=== PATIENT | female | born 1995 | race Caucasian/White ===

== ENCOUNTER 2019-09-09 17:14 | Inpatient (IN) | payer MEDICAID, OTHER ==
[2019-09-09] MEDS ORDERED: Lactated Ringers 1000 ML Bag* 1,000 ML IV ONE (17:55)
[2019-09-09] MEDS ORDERED: Buffered Lidocaine 1% SYRIN* 1 ML/SYRINGE INTRADERM ONE (17:55)
[2019-09-09] MEDS ORDERED: Famotidine IV* 10 MG/ML 2 ML (20 mg) IV SLOW PU ONE (18:00)
[2019-09-09] MEDS ORDERED: Lactated Ringers 1000 ML Bag* 1,000 ML IV SCH (18:00)
[2019-09-09] MEDS ORDERED: Calcium Carbonate CHEW TAB* 500 MG (TUMS) PO PRN (18:00)
--- NOTE | 2019-09-09 18:05 | HP ---
General Information - Reason for Visit Contractions increasing in intensity since last night - General Information Maternal Age: 24 Grav: 2 Para: 1 SAB: 0 IEA: 0 Estimated Due Date: 09/05/19 Maternal Blood Type and Rh: A Positive - Results this Serology/RPR Result: Non-Reactive Rubella Result: Immune HBsAg Result: Negative HIV Result: Negative GBS Culture Result: Negative Past Medical History Delivery History: Hx Uncomplicated Vaginal Delivery Pertinent Past Medical History: See Records Review of Systems Constitutional: Uncomfortable CV Complaint: No Respiratory: Shortness of Breath: No Gastrointestinal: No Nausea/Vomiting, Normal Bowel Movement Genitourinary: No Dysuria, No Bleeding, No Leaking Fluid Musculoskeletal: Contractions Neurological: No Headache, No Visual Changes Movement: Normal Exam Allergies/Adverse Reactions: Allergies amoxicillin Allergy (Verified 09/09/19 18:04) Unknown Reaction Details coconut Allergy (Verified 09/09/19 18:04) Unknown Reaction Details Penicillins Allergy (Verified 09/09/19 18:35) Anaphylatic Shock - Measurements Height: 5 ft 6 in Weight: 208 lb Weight in lbs: [phone] Body Mass Index (BMI): 33.5 Pre- Weight: 170 lb Weight Gained This : 38 lbs and 0 ozs - Exam Breast: Breast Exam Deferred CVA: No CVA Tenderness Extremities: No Edema Heart: Normal Rhythm/Heart Sounds HEENT: No Significant Findings Lungs: Clear Bilaterally Rectal: Rectal Exam Deferred Reflexes: DTR 2+ - Abdominal Exam Abdomen Exam: Non-Tender, Fundal Height Consistent with Dates - Ultrasound/Biophysical Profile Ultrasound Status: Not Done Targeted Exam Findings Estimated Weight: 7lb Cervical Exam: 6cm Effacement: 90% Station: 0 Presenting Part: Vertex Membrane Status: Intact Bleeding/Discharge: None EFM Findings - External Monitor Findings Baseline Heart Rate: 140 External Monitor Findings: Accelerations Present, No Pattern of Variable or Late Decelerations, Variability Moderate Contractions: Regular, Strong, 45-90 Seconds Contraction Frequency: q 3 min Assessment/Plan - Assessment IUP @ 40+5 weeks gestation in labor. Intact membranes. No evidence acidemia. - Plan Plan: Admit - Anticipate Vaginal Delivery Plan Comment: Admit, IV initiated in case patient desires epidural. - Date/Time of Admission Date of Admission: 09/09/19 Time of Admission: 18:13
[2019-09-09 18:35] LABS: ABS Lymphocytes 1.9 10^3/ul (1.0-4.8); ABS Monocytes 0.7 10^3/ul (0-0.8); Eosinophil % 0.2 %; Hematocrit 36 % (35-47); Hemoglobin 11.8 g/dL (12.0-16.0); Mean Corpuscular HGB Conc 33 g/dL (31-36); Mean Corpuscular Hemoglobin 28 pg (27-31); Mean Corpuscular Volume 85 fL (80-97); Mean Platelet Volume 7.9 fL (7.4-10.4); Platelet Count 205 10^3/uL (150-450); Red Blood Count 4.17 10^6 /uL (3.70-4.87); Red Cell Distribution Width 13 % (10-15); White Blood Count 12.7 10^3/uL (3.5-10.8)
[2019-09-09 19:12] LABS: Urine Benzodiazepine Screen None Detected (None Detect); Urine Opiates Screen None Detected (None Detect)
--- NOTE | 2019-09-09 20:08 | PN ---
Progress Note - Progress Note Date of Service: 09/09/19 Note: Uncomfortable. Still wants to consider epidural but prefers to wait for ' s return before that or before considering amniotomy.
[2019-09-09] MEDS ORDERED: Acetaminophen TAB* 325 MG PO PRN (21:19)
[2019-09-09] MEDS ORDERED: Glycerin ADULT SUPP PR PRN (21:19)
--- NOTE | 2019-09-09 21:40 | PROCNOTE ---
[facility] OB: Delivery Note - Delivery A Date of : 09/09/19 Time of : 20:48 [place] Sex: Female - "Donald Quiroga" Weight at : 7 lb 10 oz Score 1 Minute: 9 Score 5 Minutes: 9 Gestational Age in Weeks and Days at Delivery: 40 Weeks and 4 Days Delivery Method: Spontaneous Vaginal Labor: Spontaneous Did Patient attempt ?: N/A, No Previous Amniotic Fluid: Clear Estimated Blood Loss: 300 Anesthesia/Analgesia: None Delivered By: Salazar Best - Nursery Level of Nursery: Regular/Bedside - Perineum Perineal Injury: Abrasion Only - Not Repaired Perineal Repair: None - Events Delivery Events of Note: None Apply - Additional Delivery Notes Additional Delivery Notes: Admitted in active labor with quick progression to urge to push. Length of active labor 5'54", pushed 25 min. Baby born OA to SELINA, shoulders following with maternal efforts. To maternal abdomen with spontaneous cry, HR >110. Cord doubly clamped and cut by FOB once pulsations ceased. Placenta delivered with gentle cord traction @ 2053. Fundus firm to massage. Baby at breast to initiate .
[2019-09-09] MEDS: Ibuprofen TAB* 600 MG PO PRN (21:46)
[2019-09-09] MEDS: Dibucaine 1% 28.35 GM TUBE PR PRN (21:47)
[2019-09-09] MEDS: Witch Hazel PAD* JAR TOPICAL PRN (21:47)
[2019-09-10] MEDS: Dibucaine 1% 28.35 GM TUBE PR PRN (05:52)
[2019-09-10] MEDS: Ibuprofen TAB* 600 MG PO PRN ×3 (05:53→17:52)
[2019-09-10 06:55] LABS: ABS Monocytes 0.9 10^3/ul (0-0.8); ABS Neutrophils 10.1 10^3/ul (1.5-7.7); Eosinophil % 0.1 %; Hematocrit 33 % (35-47); Hemoglobin 11.5 g/dL (12.0-16.0); Lymphocyte % 15.2 %; Mean Corpuscular HGB Conc 34 g/dL (31-36); Mean Corpuscular Hemoglobin 29 pg (27-31); Mean Corpuscular Volume 84 fL (80-97); Mean Platelet Volume 7.7 fL (7.4-10.4); Platelet Count 197 10^3/uL (150-450); Red Blood Count 3.96 10^6 /uL (3.70-4.87); Red Cell Distribution Width 14 % (10-15); White Blood Count 13.1 10^3/uL (3.5-10.8)
[2019-09-10] MEDS ORDERED: Ferrous Gluconate TAB* 324 MG TAB PO SCH (09:00)
[2019-09-10] MEDS: Docusate CAP* 100 MG PO SCH ×3 (09:08→20:52)
[2019-09-10] MEDS: Witch Hazel PAD* JAR TOPICAL PRN (17:52)
[2019-09-10] MEDS ORDERED: Mupirocin 2% OINT* TUBE TOPICAL SCH (21:00)
[2019-09-11] MEDS: Ibuprofen TAB* 600 MG PO PRN ×2 (00:05→06:10)
[2019-09-11 08:04] VITALS: BP 113/55
[2019-09-11] MEDS: Docusate CAP* 100 MG PO SCH (08:25)
[2019-09-11] MEDS: Witch Hazel PAD* JAR TOPICAL PRN (08:25)
[2019-09-11] MEDS: Dibucaine 1% 28.35 GM TUBE PR PRN (08:57)
== END 2019-09-11 10:52 | disposition home or self-care (01) | DRG 560 ==
LOC: MCHOBOUT 17:14 → MCHOB 18:13 → EDBD 18:13 → MCHOB 23:45
PROVIDERS: ADMIT Midwife; ATTEND Midwife
PROC: 10E0XZZ Delivery of Products of Conception, External Approach (ICD-10-PCS; principal; 2019-09-09)
PROC: 4A1HXCZ Monitoring of Products of Conception, Cardiac Rate, External Approach (ICD-10-PCS; 2019-09-09)
DX: O48.0 Post-term pregnancy (principal); Z37.0 Single live birth; O71.89 Other specified obstetric trauma; K21.0 Gastro-esophageal reflux disease with esophagitis; O99.62 Diseases of the digestive system complicating childbirth; Z3A.40 40 weeks gestation of pregnancy; Z88.0 Allergy status to penicillin; Z91.018 Allergy to other foods
CPT/HCPCS: 36415; 80307; 85025; 86850; 86900; 86901; A9270-GY; G0480

== ENCOUNTER 2021-05-01 18:30 | Inpatient (IN) ==
[2021-05-01] MEDS ORDERED: Lactated Ringers 1000 ml BAG 1,000 ML IV ONE (19:55)
[2021-05-01] MEDS ORDERED: Buffered Lidocaine 1% SYRIN 1 ml INTRADERM ONE (19:55)
[2021-05-01 20:43] LABS: Urine Benzodiazepine Screen None Detected (None Detect); Urine Opiates Screen None Detected (None Detect)
[2021-05-01 21:40] LABS: Urine Appearance Cloudy; Urine Bilirubin Negative (Negative); Urine Blood Negative (Negative); Urine Color Amber; Urine Glucose Negative (Negative); Urine Ketones 1+ (Negative); Urine Nitrite Negative (Negative); Urine Protein 1+(30 mg/dL) (Negative); Urine Specific Gravity 1.023 (1.002-1.030); Urine Urobilinogen Negative (Negative)
[2021-05-01 21:55] LABS: Urine Benzodiazepine Screen None Detected (None Detect); Urine Cannabinoids Screen Presumptive Positive (None Detect); Urine Opiates Screen None Detected (None Detect)
[2021-05-01 22:00] LABS: Urine Bacteria Absent (Absent); Urine Red Blood Cell Trace(0-2/hpf) (Absent); Urine Squamous Epithelial Cell Present (Absent); Urine White Blood Cell 2+(11-20/hpf) (Absent)
[2021-05-01] MEDS ORDERED: Nalbuphine 10 MG/ML 1 ML VIAL IV PRN (22:47)
[2021-05-01] MEDS ORDERED: Promethazine INJ(RESTRICTED) 25 MG/ML 1 ml VIAL IV PRN (22:47)
[2021-05-01] MEDS ORDERED: Dinoprostone 10 MG VAG.SUPP VAGINAL ONE (22:48)
[2021-05-01 23:49] LABS: ABS Lymphocytes 2.3 10^3/ul (1.0-4.8); ABS Monocytes 0.7 10^3/ul (0-0.8); ABS Neutrophils 6.7 10^3/ul (1.5-7.7); Eosinophil % 0.1 %; Hematocrit 32 % (35-47); Hemoglobin 10.9 g/dL (12.0-16.0); Lymphocyte % 23.5 %; Mean Corpuscular HGB Conc 34 g/dL (31-36); Mean Corpuscular Hemoglobin 30 pg (27-31); Mean Corpuscular Volume 87 fL (80-97); Platelet Count 198 10^3/uL (150-450); Red Blood Count 3.69 10^6 /uL (3.70-4.87); Red Cell Distribution Width 13 % (10-15); White Blood Count 9.6 10^3/uL (3.5-10.8)
[2021-05-02 00:05] LABS: Albumin 3.2 g/dL (3.2-5.2); Albumin/Globulin Ratio 1.3 (1-3); Calcium 8.3 mg/dL (8.6-10.3); Globulin 2.5 g/dL (2-4); Potassium 3.4 mmol/L (3.5-5.0); Total Bilirubin 0.5 mg/dL (0.2-1.0); Total Protein 5.7 g/dL (6.4-8.9)
[2021-05-02] MEDS ORDERED: Oxytocin in LR 20 UNITS/1,000 ML BAG IVPB SCH ×2 (12:00→21:00)
[2021-05-02] MEDS: Lactated Ringers 1000 ml BAG 1,000 ML IV SCH ×2 (12:03→19:47)
[2021-05-02] MEDS ORDERED: Promethazine INJ(RESTRICTED) 25 MG/ML 1 ml VIAL IV ONE ×2 (13:04→13:22)
[2021-05-02] MEDS ORDERED: Nalbuphine 10 MG/ML 1 ML VIAL IV ONE (13:05)
[2021-05-02] MEDS ORDERED: OBEPIDURAL 250 ML EPIDURAL ONE (18:17)
[2021-05-02] MEDS ORDERED: Lidocaine 2% w/ EPI 1:200,000 MPF 20 ML SDV VIAL ONE (19:20)
[2021-05-02] MEDS ORDERED: Lactated Ringers 1000 ml BAG 500 ML IV PRN ×2 (19:34)
[2021-05-02] MEDS ORDERED: Phenylephrine 40 mcg/mL 10mL (400mcg) SYRINGE IV PUSH PRN ×2 (19:34)
[2021-05-02] MEDS ORDERED: Lactated Ringers 1000 ml BAG 1,000 ML IV ONE (19:34)
[2021-05-02] MEDS ORDERED: Sodium Citrate/Citric Acid LIQ 15 ML UDC PO PRN (19:34)
[2021-05-02] MEDS ORDERED: OBEPIDURAL 250 ML EPIDURAL SCH (20:00)
[2021-05-02] MEDS ORDERED: Lactated Ringers 1000 ml BAG 1,000 ML IV SCH ×3 (20:00→21:00)
[2021-05-02] MEDS ORDERED: Dibucaine 1% OINT 28.35 GM TUBE PR PRN (20:46)
[2021-05-02] MEDS ORDERED: Witch Hazel PAD JAR TOPICAL PRN (20:46)
[2021-05-02 20:52] LABS: Urine Appearance Clear; Urine Bilirubin Negative (Negative); Urine Blood Negative (Negative); Urine Color Amber; Urine Glucose Negative (Negative); Urine Ketones Trace (Negative); Urine Nitrite Negative (Negative); Urine Protein 1+(30 mg/dL) (Negative); Urine Specific Gravity 1.021 (1.002-1.030); Urine Urobilinogen Negative (Negative)
[2021-05-02 20:56] LABS: Urine Bacteria Absent (Absent); Urine Red Blood Cell Trace(0-2/hpf) (Absent); Urine Squamous Epithelial Cell Present (Absent); Urine White Blood Cell 1+(6-10/hpf) (Absent)
[2021-05-03 06:42] LABS: ABS Lymphocytes 2.2 10^3/ul (1.0-4.8); ABS Monocytes 0.9 10^3/ul (0-0.8); ABS Neutrophils 8.4 10^3/ul (1.5-7.7); Eosinophil % 0.2 %; Hematocrit 29 % (35-47); Lymphocyte % 19.2 %; Mean Corpuscular HGB Conc 34 g/dL (31-36); Mean Corpuscular Hemoglobin 30 pg (27-31); Mean Corpuscular Volume 87 fL (80-97); Mean Platelet Volume 7.7 fL (7.4-10.4); Platelet Count 193 10^3/uL (150-450); Red Blood Count 3.36 10^6 /uL (3.70-4.87); Red Cell Distribution Width 13 % (10-15); White Blood Count 11.5 10^3/uL (3.5-10.8)
[2021-05-03 21:03] VITALS: BP 129/82
== END 2021-05-03 21:25 | disposition home or self-care (01) | DRG 560 ==
LOC: MCHOB 19:23
PROVIDERS: ADMIT Midwife; ATTEND Midwife